=== PATIENT | female | born 1965 | race Caucasian/White ===

== ENCOUNTER → 2017-04-04 21:39 | Emergency (ER) | payer OTHER ==
[~2017-04-04 21:39] MED LIST: DOXYcycline CAP(*) 100 MG PO ONE; Tetan/Diph/Pertus SYR(Tdap)* 0.5 ML SYR(BOOSTRIX) use SYR IM ONE
--- NOTE | 2017-04-05 00:37 | ED ---
Bite Injury/Animal - HPI Summary HPI Summary: Pt here w/ tick bite to Rt axillary region - presumes tick attached itself earlier today when he was golfing. Removed prior to arrival but thinks some of it may still be present. Last tetanus vaccine 12 years ago. - History of Current Complaint Chief Complaint: EDRashSkinAbscess Stated Complaint: TICK BITE Time Seen by Provider: 04/05/17 00:24 Hx Obtained From: Patient Pain Intensity: 1 - Allergies/Home Medications Allergies/Adverse Reactions: Allergies Allergy/AdvReac Type Severity Reaction Status Date / Time Amoxicillin Allergy Mild Rash Verified 04/04/17 21:48 PMH/Surg Hx/FS Hx/Imm Hx Previously Healthy: Yes Endocrine/Hematology History: Denies: Hx Anticoagulant Therapy, Autoimmune Disease - Immunization History Immunizations Up to Date: No - last tetanus 12 years ago Infectious Disease History: No Infectious Disease History: Denies: Hx of Known/Suspected MRSA, Traveled Outside the in Last 30 Days - Social History Lives: With Family Review of Systems Constitutional: Negative Respiratory: Negative Gastrointestinal: Negative Positive: no symptoms reported Musculoskeletal: Negative Skin: Other - see HPI Neurological: Negative Psychological: Normal All Other Systems Reviewed And Are Negative: Yes Physical Exam Triage Information Reviewed: Yes Vital Signs On Initial Exam: Initial Vitals Temp Pulse Resp BP Pulse Ox 98.8 F 78 14 131/91 99 04/04/17 21:46 04/04/17 21:46 04/04/17 21:46 04/04/17 21:46 04/04/17 21:46 Vital Signs Reviewed: Yes Appearance: Positive: Well-Appearing, No Pain Distress, Well-Nourished Skin: Positive: Warm, Dry - focal area of erythema about tick bite location - head may still be imbedded in tissue - no induration, no edema, NTTP, no EM rash observed Head/Face: Positive: Normal Head/Face Inspection Eyes: Positive: EOMI ENT: Positive: Hearing grossly normal Respiratory/Lung Sounds: Positive: Breath Sounds Present Cardiovascular: Positive: Normal Musculoskeletal: Positive: Normal, Strength/ROM Intact Neurological: Positive: Normal, Sensory/Motor Intact, Alert, Oriented to Person Place, Time, CN Intact II-III Psychiatric: Positive: Normal Diagnostics - Vital Signs Vital Signs Temp Pulse Resp BP Pulse Ox 04/05/17 00:17 97.4 F 66 14 122/79 98 04/04/17 21:46 98.8 F 78 14 131/91 99 - Laboratory Lab Statement: Any lab studies that have been ordered have been reviewed, and results considered in the medical decision making process. Bite Injury Course/Dx - Course Course Of Treatment: Pt here sara w tick bite he suspects to have been attached for < 12 hours. Removed by himself but not completely. Discussed option to tx prophylactically w/ doxy as remnants of insect are left in skin. He would like to proceed with this medication. Reviewed f/u care and to monitor of danger s/sx of infection/Lyme. Pt agrees w/ plan. - Diagnoses Provider Diagnosis: Tick bite Discharge - Discharge Plan Condition: Stable Disposition: HOME Patient Education Materials: Tick Bite (ED) Referrals: Non Staff,Doctor [Primary Care Provider] - Additional Instructions: Keep area clean and dry - monitor for signs of infection You may also monitor for signs/symptoms of Lyme disease Follow-up with PCP in the next 1-2 weeks for recheck *If you develop headache, fever, neck pain, joint aches, rash, chills, palpitations, shortness of breath, seek medical attention
[2017-04-05 01:08] VITALS: BP 136/64
== END | disposition home or self-care (01) ==
LOC: ED 21:39
DX: S40.861A Insect bite (nonvenomous) of right upper arm, initial encounter (principal); W57.XXXA Bitten or stung by nonvenomous insect and other nonvenomous arthropods, initial encounter; Y93.53 Activity, golf; Y92.39 Other specified sports and athletic area as the place of occurrence of the external cause; Z23 Encounter for immunization; Z88.1 Allergy status to other antibiotic agents
CPT/HCPCS: 90471; 90715; 99281; A9270-GY